=== PATIENT | female | born 1985 | race African-American/Black ===

== ENCOUNTER 2017-01-06 09:31 | Emergency (ER) | payer SELFPAY ==
[2017-01-06] MEDS ORDERED: BUPIVACAINE HCL 0.5 % INJ/PF 30 ML SDV INJ ONE (10:50)
[2017-01-06] MEDS ORDERED: PENICILLIN V POTASSIUM 500 MG TABLET PO ONE (10:50)
--- NOTE | 2017-01-06 12:21 | ER Document Report ---
HPI - HPI Patient complains to provider of: Toothache Pain Level: 5 Context: Patient is a 31-year-old female comes emergency department complaining of left lower jaw pain, swelling. Patient states that her symptoms started last Monday , she has been taking her sister's old amoxicillin which did not improve the pain. She has been taking Tylenol, Motrin and Excedrin for pain without any relief in her symptoms. Patient states that she does not have a dentist. Denies any fever, chills, difficulty swallowing, difficulty breathing, loss of speech, trismus, chest pain. Denies any past medical history, past surgical history. She is not a smoker, denies any alcohol or drug use. Does not have a primary care physician - REPRODUCTIVE Reproductive: REPORTS: : - DERM Skin Color: Normal Past Medical History - Social History Smoking Status: Current Every Day Smoker Chew tobacco use (# tins/day): No Frequency of alcohol use: None Drug Abuse: None Family History: Reviewed & Not Pertinent Patient has suicidal ideation: No Patient has homicidal ideation: No Renal/ Medical History: Denies: Hx Peritoneal Dialysis Past Surgical History: Reports: Hx Section - Immunizations Hx Diphtheria, Pertussis, Tetanus Vaccination: No Hx Pneumococcal Vaccination: 05/21/10 Vertical Provider Document - CONSTITUTIONAL Agree With Documented VS: Yes Exam Limitations: No Limitations General Appearance: WD/WN, No Apparent Distress - INFECTION CONTROL TRAVEL OUTSIDE OF THE [place] IN LAST 30 DAYS: No - HEENT HEENT: Atraumatic, Normocephalic. negative: Pharyngeal Exudate, Pharyngeal Tenderness, Pharyngeal Erythema Mouth Diagram: 1 - Tenderness to palpation, evidence of periodontal abscess with tenderness, swelling. Notes: Uvula midline. Airway patent. No evidence of tonsillar enlargement, peritonsillar abscess, retropharyngeal abscess. - NECK Neck: Normal Inspection, Other - No evidence of Mehdi's angina. negative: Lymphadenopathy-Left, Lymphadenopathy-Right - RESPIRATORY Respiratory: Breath Sounds Normal, No Respiratory Distress, Chest Non-Tender O2 Sat by Pulse Oximetry: 100 - CARDIOVASCULAR Cardiovascular: Regular Rate, Regular Rhythm, No Murmur Course - Re-evaluation Re-evalutation: 01/06/17 13:23 Patient is a 31-year-old female presented to emergency room complaining of left ear pain. She is hemodynamic stable, no acute distress afebrile. Patient received a 5 cc submental nerve block which alleviated her symptoms. Abscess was drained with an 18-gauge needle for purulent fluid. Initiated patient on penicillin and discussed with her to follow-up with the dentist when she completes her antibiotics - Vital Signs Vital signs: Temp Pulse Resp BP Pulse Ox 98.4 F 81 14 119/76 100 01/06/17 09:34 01/06/17 09:34 01/06/17 09:34 01/06/17 09:34 01/06/17 09:34 Discharge - Discharge Clinical Impression: Tooth abscess Condition: Good Disposition: HOME, SELF-CARE Instructions: Toothache (OM), Penicillin V K (OM), Oral Narcotic Medication ( OM), [facility] Additional Instructions: To take all the antibiotics and we did order to get out of room with a dentist once you complete your antibiotic. [facility] [address], [place] Monday mornings, by appointment [facility] [address] [place] [address] [facility] [place] [address] [facility] [address] [facility] [address] [email or web address] [address] [place] [address] Monday- 8:00am to 5:00 pm Will see patients from other [facility]. Charges based on income and family size and accepts Medicare, Medicaid, and Insurances Will pull molars [facility] [id number] Hours of Operation 8:00 am - 4:30 pm weekdays The following dental offices accept Medicaid: [facility] [place] Dr. Murray Dr. Gutierrez Dr. Díaz Dr. Arteaga Jose Fernandes, Artem, and Florencia oral surgery Dr. Mulligan ([place]) Dr. Gaston ([place]) [facility] Drs. Fowler and Guilherme ([place]) Dr. Portillo ([place]) [facility] Dr. Jordan ([place]) Drs. Smart and ([place]) Medicaid Care Line Prescriptions: Oxycodone HCl/Acetaminophen [Percocet 5-325 mg Tablet] 1 - 2 tab PO Q4H PRN #15 tablet PRN Reason: Penicillin V Potassium [Penicillin Vk 500 mg Tablet] 500 mg PO BID #20 tablet Forms: Return to Work
[2017-01-06 12:40] VITALS: BP 120/74
== END 2017-01-06 12:38 | disposition home or self-care (01) ==
LOC: ER 09:31
PROC: 3E0T3BZ Introduction of Anesthetic Agent into Peripheral Nerves and Plexi, Percutaneous Approach (ICD-10-PCS; principal; 2017-01-06)
DX: K04.7 Periapical abscess without sinus (principal); R68.84 Jaw pain; F17.200 Nicotine dependence, unspecified, uncomplicated
CPT/HCPCS: 99282